=== PATIENT | female | born 1990 | race Caucasian/White ===

== ENCOUNTER 2021-05-30 14:38 | Emergency (ER) | payer BC ==
[~2021-05-30] VITALS: Ht 172.7 cm; Wt 87.1 kg
[2021-05-30 14:39] VITALS: BP 163/117
--- NOTE | 2021-05-30 15:18 | NUR ---
URINE AY BEDSIDE
--- NOTE | 2021-05-30 15:28 | NUR ---
30 Y/O F BIB SELF FROM HOME, PATIENT PRESENTS TO ED WITH CHEST PAIN, SQUEEZING SENSATION, SHARP, INTERMITTENT THAT RADIATES TO L ARM. PT STATES PAIN STARTED YESTERDAY, PAIN CMOES AND GOES. UPON ASSESSMENT, PT DOES NOT HAVE EDEMA, RESPIRATORY DISTRESS OR SWELLING IN L ARM. DENIES N/V/D, DYSURIA, HEMATURIA, AND CONSTIPATION; SKIN IS PINK/WARM/DRY; AAOX4 WITH EVEN AND STEADY GAIT; LUNGS CLEAR BL; HR EVEN AND TACHY; PT DENIES ANY FEVER, SOB, OR COUGH AT THIS TIME; PATIENT STATES PAIN OF 7/10 AT THIS TIME; PATIENT POSITIONED FOR COMFORT; HOB ELEVATED; BEDRAILS UP X2; BED DOWN. ER MD MADE AWARE OF PT STATUS. PMH: DENIES NKA MED: WELLBUTRIN 450MG, CONTROL, VIT D
[2021-05-30] MEDS ORDERED: NACL 0.9% 1,000 ML IV ONE (15:30)
--- NOTE | 2021-05-30 15:53 | NUR ---
LABS DRAWN AND GIVEN TO PHLEB AT THIS TIME
--- NOTE | 2021-05-30 16:02 | NUR ---
URINE WAS GIVEN TO PHLEB IN LAB
[2021-05-30 16:10] LABS: ALBUMIN 4.1 g/dL (3.4-5.0); ANION GAP 13.8 (8-16); CARBON DIOXIDE 25.2 mmol/L (21-32); TOTAL BILIRUBIN 0.4 mg/dL (0.0-1.0)
[2021-05-30 17:53] LABS: BASOPHILS % (AUTO) 0.3 % (0.0-2.0); EOSINOPHILS % (AUTO) 0.2 % (0.0-4.0); HEMATOCRIT 42.1 % (36-48); HEMOGLOBIN 14.4 g/dL (12.0-16.0); LYMPHOCYTES # (AUTO) 1.8 K/uL (2.5-16.5); LYMPHOCYTES % (AUTO) 19.7 % (20.5-51.1); MEAN CORPUSCULAR HEMOGLOBIN 30 pg (27-31); MEAN CORPUSCULAR HGB CONC 34 g/dL (33-37); MEAN CORPUSCULAR VOLUME 87.6 fL (80-94); MONOCYTES # (AUTO) 0.5 K/uL (0.8-1.0); MONOCYTES % (AUTO) 5.5 % (1.7-9.3); NEUTROPHILS # (AUTO) 6.7 K/uL (1.8-7.7); NEUTROPHILS % (AUTO) 74.3 % (42.2-75.2); PLATELET COUNT (AUTO) 277 K/uL (140-450); RED BLOOD CELL COUNT(AUTO) 4.81 MIL/uL (4.20-5.40); RED CELL DISTRIBUTION WIDTH 12.5 % (11.6-13.7)
[2021-05-30 18:41] VITALS: BP 119/73
--- NOTE | 2021-05-30 18:41 | NUR ---
Patient discharged with v/s stable. Written and verbal after care instructions given and explained. Patient verbalized understanding. Ambulatory with steady gait. All questions addressed prior to discharge. Advised to follow up with PMD.
== END 2021-05-30 18:41 | disposition home or self-care (01) ==
LOC: MED 14:38
DX: R07.89 Other chest pain (principal)
CPT/HCPCS: 36415; 71045; 80053; 81002; 81025; 83690; 83880; 84484; 85025; 85379; 93005; 96360; 96361; 99285; J7030; Q0092

== ENCOUNTER 2021-08-14 23:55 | Emergency (ER) | payer BC ==
[~2021-08-14] VITALS: Ht 172.7 cm; Wt 65.9 kg
[2021-08-15 00:15] VITALS: BP 137/89
--- NOTE | 2021-08-15 00:23 | NUR ---
PT IN LOBBY.
[2021-08-15] MEDS ORDERED: cephALEXin 500 MG CAP PO ONE (01:10)
[2021-08-15] MEDS ORDERED: HYDROcodone/APAP 5/325 MG 1 TAB TAB PO ONE (01:10)
[2021-08-15] MEDS ORDERED: IBUPROFEN 800 MG TAB PO ONE (01:20)
--- NOTE | 2021-08-15 01:28 | NUR ---
pt in rad.
[2021-08-15] MEDS ORDERED: CEPH-588 PO (02:49)
[2021-08-15 03:40] VITALS: BP 137/89
== END 2021-08-15 03:40 | disposition home or self-care (01) ==
LOC: MED 23:55
DX: M79.672 Pain in left foot (principal); F41.9 Anxiety disorder, unspecified
CPT/HCPCS: 73630; 81025; 99283